=== PATIENT | female | born 1995 | race Caucasian/White ===

== ENCOUNTER 2019-09-29 07:00 | Observation (INO) | payer MEDICAID ==
[2019-09-29] MEDS ORDERED: PREN-96 PO (10:34)
[2019-09-29] MEDS ORDERED: FERR-7 PO (10:34)
== END 2019-09-29 10:49 | disposition home or self-care (01) | DRG 566 ==
LOC: LDRP 09:08
PROVIDERS: ADMIT Specialist; ATTEND Specialist
DX: O48.0 Post-term pregnancy (principal); Z3A.40 40 weeks gestation of pregnancy
CPT/HCPCS: 59025; 76818; 81002; G0378

== ENCOUNTER 2019-10-01 11:03 | Observation (INO) | payer MEDICAID ==
[~2019-10-01 11:03] MED LIST: FERR-7 PO; PREN-96 PO
== END 2019-10-01 12:51 | disposition home or self-care (01) | DRG 566 ==
LOC: LDRP 11:03
PROVIDERS: ADMIT Specialist; ATTEND Specialist
DX: O48.0 Post-term pregnancy (principal); O41.03X0 Oligohydramnios, third trimester, not applicable or unspecified; O26.893 Other specified pregnancy related conditions, third trimester; N89.8 Other specified noninflammatory disorders of vagina; Z3A.40 40 weeks gestation of pregnancy
CPT/HCPCS: 59025; 76818; 81002; G0378

== ENCOUNTER 2019-10-03 16:21 | Observation (INO) | payer MEDICAID | END 2019-10-03 19:36 | disposition home or self-care (01) | DRG 566 | LOC: LDRP 16:21 | PROVIDERS: ADMIT Obstetrics & Gynecology; ATTEND Obstetrics & Gynecology | DX: O48.0 Post-term pregnancy (principal); O26.893 Other specified pregnancy related conditions, third trimester; N89.8 Other specified noninflammatory disorders of vagina; Z3A.40 40 weeks gestation of pregnancy | CPT/HCPCS: 59025; 76818; 81002; G0378; U0003 ==

== ENCOUNTER 2019-10-04 19:50 | Observation (INO) | payer MEDICAID | END 2019-10-04 20:35 | disposition home or self-care (01) | DRG 566 | LOC: LDRP 19:50 | PROVIDERS: ADMIT Specialist; ATTEND Specialist | DX: O48.0 Post-term pregnancy (principal); Z3A.40 40 weeks gestation of pregnancy | CPT/HCPCS: 59025; 81002; G0378 ==

== ENCOUNTER 2019-10-05 04:50 | Inpatient (IN) | payer MEDICAID ==
[~2019-10-05] VITALS: Ht 30.5 cm; Wt 0.5 kg
[~2019-10-05 04:50] MED LIST changes: -FERR-7 PO
[2019-10-05] MEDS ORDERED: LACTATED RINGER'S 1,000 ML IV SCH ×2 (05:03→07:15)
[2019-10-05] MEDS ORDERED: NALBUPHINE HCL 10 MG/1ml INJECTION IV PRN (07:15)
[2019-10-05] MEDS ORDERED: PHISODERM TOP SOLN 240ML BTL TOP PRN (07:15)
[2019-10-05] MEDS ORDERED: PENICILLIN G POT 5MIL/D5 50ML 50 ML IV ONE (07:15)
[2019-10-05] MEDS ORDERED: WITCH HAZEL-GLYCERIN PAD TOP PRN (07:15)
[2019-10-05] MEDS ORDERED: LIDOCAINE 1% (LOCAL ANESTH.) PF 5ml SDV IJ ONE (07:15)
[2019-10-05] MEDS ORDERED: DERMOPLAST 60ML BOTTLE TOP PRN (07:15)
[2019-10-05 08:03] LABS: Basophils # (auto) 0.1 10 ^3/uL (0-0.2); Basophils % (auto) 0.7 % (0.0-2.0); Eosinophils # (auto) 0.1 10 ^3/uL (0-0.8); Eosinophils % (auto) 0.4 % (0.0-7.0); Hematocrit 34.5 % (36.0-46.0); Hemoglobin 11.4 g/dL (12.2-16.2); Lymphocytes # (auto) 1.6 10 ^3/uL (0.4-5.4); Lymphocytes % (auto) 10.8 % (10.0-50.0); Mean Corpuscular Hemoglobin 29.1 pg (28.0-32.0); Mean Corpuscular Volume 88.1 fL (80.0-100.0); Monocytes # (auto) 1.1 10 ^3/uL (0-1.3); Monocytes % (auto) 7.2 % (0.0-12.0); Neutrophils # (auto) 11.9 10 ^3/uL (1.6-8.6); Neutrophils % (auto) 80.9 % (37.0-80.0); Nucleated Red Blood Cells % 0.1 %; Platelet Count (auto) 237 10^3/uL (140-450); Red Blood Cells 3.92 10^6/uL (4.0-5.20); Red Cell Distribution Width 15.8 % (11.8-14.3); White Blood Cell 14.8 10^3/uL (4.4-10.8)
[2019-10-05 08:07] LABS: Urine Bacteria NONE SEEN /hpf (None Seen); Urine Blood 2+ /uL (Negative); Urine Hyaline Cast FEW /lpf (0 - 2); Urine Mucus FEW (None Seen); Urine Specific Gravity 1.015 (1.001-1.035); Urine WBC 23 /hpf (0 - 5)
[2019-10-05 08:18] LABS: INR 0.95 (0.9-1.15); Partial Thromboplastin Time 26.5 sec (23.64-32.05)
[2019-10-05 08:19] LABS: Albumin 2.5 g/dL (3.4-5.0); Calcium 8.5 mg/dL (8.5-10.1); Potassium 3.5 mmol/L (3.5-5.1)
[2019-10-05 08:23] LABS: Bilirubin, Total 0.2 mg/dL (0.2-1.0); Total Protein 6.4 g/dL (6.4-8.2); Uric Acid 3.9 mg/dL (2.6-6.0)
[2019-10-05 08:28] LABS: BUN/Creatinine Ratio 5.9
[2019-10-05] MEDS: LACTATED RINGER'S 1,000 ML IV SCH ×2 (09:00→13:27)
[2019-10-05] MEDS ORDERED: LACTATED RINGER'S 1,000 ML IV ONE (09:04)
[2019-10-05] MEDS ORDERED: ROPIVACAINE HCL 100 ML INJ SCH ×5 (09:15→11:00)
[2019-10-05] MEDS ORDERED: fentaNYL CITRATE 100 MCG/2 ML VL IV ONE (09:15)
[2019-10-05] MEDS ORDERED: NALOXONE HCL 0.4 MG/ML VIAL IV ONE ×3 (09:15→11:00)
[2019-10-05] MEDS ORDERED: ePHEDrine SULFATE 50 MG/ML AMP IV ONE ×3 (09:15→11:00)
[2019-10-05] MEDS ORDERED: fentaNYL 200mCg/100ml W ROPIVA 100 ML EPI SCH (09:15)
[2019-10-05] MEDS ORDERED: LIDOCAINE HCL 2 %PF INJ 10ML AMP IJ ONE (09:15)
[2019-10-05 09:37] LABS: Alcohol, Urine < 3.0 mg/dL (0-10); Amphetamine Screen, Urine NEGATIVE (NEGATIVE); Barbiturate Scree,Urine NEGATIVE (NEGATIVE); Benzodiazephine Screen, Urine NEGATIVE (NEGATIVE); Cannabinoid Screen, Urine NEGATIVE (NEGATIVE); Cocaine Screen, Urine NEGATIVE (NEGATIVE); Opiate Scree,Urine NEGATIVE (NEGATIVE); Phencyclidine Screen, Urine NEGATIVE (NEGATIVE)
[2019-10-05] MEDS ORDERED: SODIUM CHLORIDE 0.9% 500 ML IV PRN (10:53)
[2019-10-05] MEDS ORDERED: LACT. RINGERS/OXYTOCIN 20UNITS 1,000 ML IV SCH (11:15)
[2019-10-05] MEDS: PENICILLIN G POTASSIUM 2,500,000 UNITS in D5W 5% 50 ML IV SCH ×2 (12:35→16:50)
[2019-10-05] MEDS ORDERED: LIDOCAINE 2%HCL (LOCAL ANESTH.) INJ 20ML MDV ONE (17:13)
[2019-10-05] MEDS: IBUPROFEN 600 MG TAB PO PRN (20:32)
[2019-10-06 03:00] VITALS: BP 106/62
[2019-10-06] MEDS: IBUPROFEN 600 MG TAB PO PRN ×3 (06:26→23:18)
[2019-10-06 06:59] VITALS: BP 108/53
[2019-10-06 11:00] VITALS: BP 113/69
[2019-10-06 13:00] VITALS: BP 114/58
[2019-10-06 19:33] VITALS: BP 133/78
[2019-10-06 23:14] VITALS: BP 142/71
[2019-10-07 06:50] VITALS: BP 125/67
== END 2019-10-07 11:23 | disposition home or self-care (01) | DRG 560 ==
LOC: LDRP 04:50 → OBSVTOIN 07:20 → LDRP 11:24
PROVIDERS: ADMIT Specialist; ATTEND Specialist
PROC: 10D07Z6 Extraction of Products of Conception, Vacuum, Via Natural or Artificial Opening (ICD-10-PCS; principal; 2019-10-05)
PROC: 10907ZC Drainage of Amniotic Fluid, Therapeutic from Products of Conception, Via Natural or Artificial Opening (ICD-10-PCS; 2019-10-05)
PROC: 3E0R3BZ Introduction of Anesthetic Agent into Spinal Canal, Percutaneous Approach (ICD-10-PCS; 2019-10-05)
PROC: 00HU33Z Insertion of Infusion Device into Spinal Canal, Percutaneous Approach (ICD-10-PCS; 2019-10-05)
PROC: 0W8NXZZ Division of Female Perineum, External Approach (ICD-10-PCS; 2019-10-05)
PROC: 10H07YZ Insertion of Other Device into Products of Conception, Via Natural or Artificial Opening (ICD-10-PCS; 2019-10-05)
DX: O77.0 Labor and delivery complicated by meconium in amniotic fluid (principal); O99.824 Streptococcus B carrier state complicating childbirth; Z37.0 Single live birth; Z3A.40 40 weeks gestation of pregnancy
CPT/HCPCS: 36415; 59025; 59409; 62282; 80053; 80307; 81001; 81002; 84112; 84550; 85025; 85610; 85730; 86850; 86900; 86901; 96360; 96361; G0378; J2540; J2590; J7060